=== PATIENT | male | born 2000 | race Caucasian/White ===

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

== ENCOUNTER → 2020-10-17 | Outpatient (CLI) | payer BC ==
--- NOTE | 2020-10-17 15:57 | RAD ---
EXAM: Left hand, 3 views. HISTORY: Trauma. COMPARISON: None. FINDINGS: 3 views left hand are obtained. There is a minimally displaced comminuted fracture of the f ourth proximal phalanx. No radiodense foreign body is seen. IMPRESSION: Mildly displaced comminuted fracture of the fourth proximal phalanx. Electronically signed by: Sandra Dickerson MD (10/17/2020 3:54 PM) [id number]
== END ==
LOC: DXRAD 15:10
PROVIDERS: ATTEND Nurse Practitioner Family
DX: S69.92XA Unspecified injury of left wrist, hand and finger(s), initial encounter (principal); S62.615A Displaced fracture of proximal phalanx of left ring finger, initial encounter for closed fracture; X58.XXXA Exposure to other specified factors, initial encounter; Y93.89 Activity, other specified; Y92.89 Other specified places as the place of occurrence of the external cause; Y99.8 Other external cause status
CPT/HCPCS: 73130